=== PATIENT | male | born 1940 | race Caucasian/White ===

== ENCOUNTER 2021-10-23 05:20 | Inpatient (IN) | payer OTHER ==
[2021-10-17 11:51] LABS: BASOPHILS % (AUTO) 0.7 % (0-1); EOSINOPHILS # (AUTO) 0.1 X10'3 (0-0.9); EOSINOPHILS % (AUTO) 1.5 % (0-6); LYMPHOCYTES # (AUTO) 1.5 X10'3 (1.1-4.8); LYMPHOCYTES % (AUTO) 21.5 % (21-51); MEAN CORPUSCULAR HEMOGLOBIN 28.4 PG (27.0-31.0); MEAN CORPUSCULAR HGB CONC 33.6 g/dL (33.0-36.5); MEAN CORPUSCULAR VOLUME 84.5 FL (78-98); MEAN PLATELET VOLUME 7.7 FL (7.4-10.4); MONOCYTES # (AUTO) 0.6 X10'3 (0-0.9); NEUTROPHILS # (AUTO) 4.6 X10'3 (1.8-7.7); NEUTROPHILS % (AUTO) 67.3 % (42-75); PRE OP HEMATOCRIT 39.7 % (42.0-52.0); PRE OP HEMOGLOBIN 13.3 g/dL (14.0-17.9); PRE OP PLATELET COUNT 311 X10'3 (140-440); RED CELL DISTRIBUTION WIDTH 13.9 % (11.5-14.5)
[2021-10-17 12:05] LABS: ALBUMIN 3.8 G/DL (3.4-5.0); ALBUMIN/GLOBULIN RATIO 1.1 (1.1-1.5); ALKALINE PHOSPHATASE 50 IU/L (46-116); BLOOD UREA NITROGEN 28 MG/DL (7-18); BUN/CREATININE RATIO 21.5 (5.4-32.0); CALCIUM 8.7 MG/DL (8.5-10.1); CHLORIDE 107 MMOL/L (99-107); PRE OP ALT 24 U/L (30-65); PRE OP ANION GAP 8 (8-16); PRE OP AST 17 U/L (10-37); PRE OP BILIRUB, TOTAL 0.3 MG/DL (0.0-1.0); PRE OP GLUCOSE 91 MG/DL (70-104); PRE OP POTASSIUM 4.4 MMOL/L (3.4-5.1); PRE OP SODIUM 142 MMOL/L (135-145); TOTAL PROTEIN 7.2 G/DL (6.4-8.2); eGFR 53 ML/MIN
[2021-10-23] VITALS (20 sets, daily range): BP systolic 112–143; BP diastolic 58–87
[~2021-10-23] VITALS: Ht 188 cm; Wt 102.1 kg
[~2021-10-23 05:20] MED LIST: LISI-232 PO; METO50TA7 PO; NORCO10T PO; SIMV10TA2 PO; ringers solution, lacted 1,000 ML IV SCH
[2021-10-23] MEDS ORDERED: famotidine 20mg tablet PO ONE (05:30)
[2021-10-23] MEDS ORDERED: ceFAZolin inj. 2,000 MG in dextrose 5%-water 100 ML IV ONE (05:30)
[2021-10-23] MEDS ORDERED: vancomycin 1,500 MG in NS 300ml IV soln IV ONE (05:30)
[2021-10-23] MEDS ORDERED: DOCUMENT DATE & TIME OF BETA-BLOCKER PO ONE (05:30)
[2021-10-23] MEDS ORDERED: tranexamic acid 650mg tablet PO ONE (05:30)
[2021-10-23] MEDS ORDERED: LIDOcaine 1% (10mg/ml) 2ml vial ONE (05:43)
[2021-10-23] MEDS ORDERED: ketorolac trometh. 30mg/ml inj. ONE (06:53)
[2021-10-23] MEDS ORDERED: ROPIVAcaine 0.5% (5mg/ml) 30ml vial ONE ×2 (06:53→07:12)
[2021-10-23] MEDS ORDERED: dexamethasone sod phosphate 4mg/ml inj. ONE (07:18)
[2021-10-23] MEDS ORDERED: propofol inj 20 ML IV ONE (07:18)
[2021-10-23] MEDS ORDERED: ondansetron/PF 4mg/2ml inj ONE (07:18)
[2021-10-23] MEDS ORDERED: LIDOcaine 1%/PF 5ML 10 MG/ML VIAL ONE (07:18)
[2021-10-23] MEDS ORDERED: morphine 2 MG/ML inj. syringe IV PRN (07:25)
[2021-10-23] MEDS ORDERED: fentaNYL/PF 50MCG/1 ML 2ML syringe IV PRN ×2 (07:25)
[2021-10-23] MEDS ORDERED: ROPIVAcaine 0.2% (10 MG/5 ML) BOLUS INJECTION INTERSCALE PRN (07:25)
[2021-10-23] MEDS ORDERED: labetalol 20mg/4ml (5mg/ml) syringe IV PRN (07:25)
[2021-10-23] MEDS ORDERED: morphine 4 MG/ML inj SYRINge IV PRN (07:25)
[2021-10-23] MEDS ORDERED: hydrALAZINE 20mg/ml inj. IV PRN (07:25)
[2021-10-23] MEDS ORDERED: ondansetron/PF 4mg/2ml inj IV PRN ×2 (07:25→10:10)
[2021-10-23] MEDS ORDERED: ringers solution, lacted 1,000 ML IV SCH (07:25)
[2021-10-23] MEDS ORDERED: sevoflurane 250ml liquid IH ONE (07:52)
[2021-10-23] MEDS ORDERED: fentaNYL/PF 50MCG/1 ML 2ML syringe ONE ×3 (07:56→09:45)
[2021-10-23] MEDS ORDERED: midazolam 1 mg/ML 2ml injection ONE (07:57)
[2021-10-23] MEDS ORDERED: acetaminophen 1,000mg/100ml IV 100 ML IV ONE (08:41)
--- NOTE | 2021-10-23 10:00 | NUR ---
PT ARRIVED TO VIA BED ACCOMPANIED BY DR. CARPENTER, ANESTHESIA REPORT GIVEN. VSS, PT WAKING UP, DENIES PAIN, BLOCK IN PLACE-PT ABLE TO MOVE FINGERS, +PULSE TO LEFT WRIST PRESENT, ARM IN SLING-SHOULDER WRAP AND POWDER PACK PRESENT, DRSG-CDI, SCDS ON, NEURO CHECKS-INTACT.
[2021-10-23] MEDS ORDERED: bisacodyl 10mg suppository rectal RC PRN (10:10)
[2021-10-23] MEDS ORDERED: acetaminophen 325mg tablet PO PRN (10:10)
[2021-10-23] MEDS ORDERED: HYDROmorphone inj. 0.5 MG/0.5 ML DISP.SYRIN IV PRN (10:10)
[2021-10-23] MEDS ORDERED: HYDROcodone/acetaminophen 10/325mg tab PO PRN (10:10)
[2021-10-23] MEDS ORDERED: naloxone 0.4 mg/ml inj IV PRN (10:10)
[2021-10-23] MEDS ORDERED: oxyCODONE IR 5mg (immed. release) tablet PO PRN (10:10)
[2021-10-23] MEDS ORDERED: HYDROmorphone 1 mg/ml syringe IV PRN (10:10)
[2021-10-23] MEDS ORDERED: magnesium hydroxide 30ml (MOM) UD suspension PO PRN (10:10)
[2021-10-23] MEDS ORDERED: diphenhydrAMINE 25mg capsule PO PRN ×2 (10:10)
[2021-10-23] MEDS: ROPIVAcaine 0.2%/PF PUMP/bolus 545 ML INTERSCALE SCH (10:44)
--- NOTE | 2021-10-23 11:30 | NUR ---
PT AWAKE, VSS, PAIN MINIMAL-ON Q ATTACHED AT 2ML/HR-PT EDUCATED REGARDING USE, NO CHANGE IN SHOULDER WRAP AND DRSG-CDI, SLING IN PLACE, SCDS ON, REPORT CALLED TO RN ON ORTHO FLOOR-ALL QUESTIONS ANSWERED, TAKEN WITH ALL BELONGINGS TO ROOM 4009C, PT HELPED UP TO BATHROOM WITH PRIMARY RN-PT ABLE TO VOID, VSS, BED LOW AND LOCKED, CALL LIGHT IN REACH. FAMILY IN ROOM.
[2021-10-23] MEDS: acetaminophen 325mg tablet PO SCH ×2 (14:52→20:41)
[2021-10-23] MEDS: potassium cl 20mEq in 1/2 NS 1,000 ML IV SCH ×2 (16:07→16:36)
[2021-10-23] MEDS: ceFAZolin/D5W- 1GM premix 50 ML IV SCH (16:35)
[2021-10-23] MEDS ORDERED: vancomycin/NS 1 GM ADD-VANTAGE 250 ML IV SCH (20:00)
[2021-10-23] MEDS: oxyCODONE IR 5mg (immed. release) tablet PO PRN (20:41)
[2021-10-23] MEDS: metoprolol succinate 25mg (24-HOUR) SR. Tablet PO SCH (20:42)
[2021-10-23] MEDS ORDERED: sennosides 8.6mg tablet PO SCH (21:00)
[2021-10-23] MEDS ORDERED: atorvastatin 10mg tablet PO SCH (21:00)
[2021-10-24] MEDS: acetaminophen 325mg tablet PO SCH ×2 (01:29→08:11)
[2021-10-24] MEDS: ceFAZolin/D5W- 1GM premix 50 ML IV SCH (01:29)
[2021-10-24 01:59] VITALS: BP 125/62
[2021-10-24] MEDS: potassium cl 20mEq in 1/2 NS 1,000 ML IV SCH ×2 (02:10→10:10)
[2021-10-24] MEDS: oxyCODONE IR 5mg (immed. release) tablet PO PRN ×2 (05:35→10:51)
[2021-10-24 06:00] VITALS: BP 124/55
--- NOTE | 2021-10-24 07:02 | NUR ---
Patient in room ORTHO 4009. I have received report from Alice PARIKH and had the opportunity to ask questions and assume patient care.
[2021-10-24 07:51] LABS: BASOPHILS % (AUTO) 0.3 % (0-1); EOSINOPHILS % (AUTO) 0 % (0-6); HEMATOCRIT 38.1 % (42.0-52.0); HEMOGLOBIN 12.5 g/dl (14.0-17.9); LYMPHOCYTES # (AUTO) 1.1 X10'3 (1.1-4.8); LYMPHOCYTES % (AUTO) 8.4 % (21-51); MEAN CORPUSCULAR HEMOGLOBIN 28.2 PG (27.0-31.0); MEAN CORPUSCULAR HGB CONC 32.9 g/dL (33.0-36.5); MEAN CORPUSCULAR VOLUME 85.7 FL (78-98); MEAN PLATELET VOLUME 8.1 FL (7.4-10.4); MONOCYTES # (AUTO) 1.4 X10'3 (0-0.9); NEUTROPHILS # (AUTO) 10.1 X10'3 (1.8-7.7); NEUTROPHILS % (AUTO) 80.3 % (42-75); PLATELET COUNT 254 X10'3 (140-440); RED BLOOD COUNT 4.45 X10'6 (4.70-6.10); RED CELL DISTRIBUTION WIDTH 14.4 % (11.5-14.5); WHITE BLOOD COUNT 12.6 X10'3 (4.5-11.0)
[2021-10-24] MEDS ORDERED: HYDROchlorothiazide 12.5mg capsule PO SCH (08:00)
[2021-10-24] MEDS: metoprolol succinate 25mg (24-HOUR) SR. Tablet PO SCH (08:00)
[2021-10-24] MEDS ORDERED: lisinopril 20mg tablet PO SCH (08:00)
[2021-10-24 08:04] LABS: ANION GAP 6 (8-16); CHLORIDE 108 MMOL/L (99-107); POTASSIUM 3.9 MMOL/L (3.5-5.1); SODIUM 140 MMOL/L (135-145)
[2021-10-24 08:10] VITALS: BP_SYST 151
[2021-10-24] MEDS ORDERED: aspirin 325mg tablet PO SCH (08:30)
[2021-10-24] MEDS: ROPIVAcaine 0.2%/PF PUMP/bolus 545 ML INTERSCALE SCH (10:53)
--- NOTE | 2021-10-24 16:37 | NUR ---
[employer] documentation: I have reviewed and agree with all interventions, assessments performed and documented by Carolee lawson.
[2021-10-25] MEDS ORDERED: acetaminophen 325mg tablet PO PRN (10:10)
== END 2021-10-24 11:12 | disposition home or self-care (01) | DRG 483 ==
LOC: PAS IN 05:20 → ORTHO 4S 11:33
PROVIDERS: ADMIT Orthopaedic Surgery; ATTEND Orthopaedic Surgery
PROC: 3E0T3BZ Introduction of Anesthetic Agent into Peripheral Nerves and Plexi, Percutaneous Approach (ICD-10-PCS; 2021-10-23)
PROC: 3E0T33Z Introduction of Anti-inflammatory into Peripheral Nerves and Plexi, Percutaneous Approach (ICD-10-PCS; 2021-10-23)
PROC: 0LS40ZZ Reposition Left Upper Arm Tendon, Open Approach (ICD-10-PCS; 2021-10-23)
PROC: 0RRK00Z Replacement of Left Shoulder Joint with Reverse Ball and Socket Synthetic Substitute, Open Approach (ICD-10-PCS; principal; 2021-10-23 07:52)
DX: M19.012 Primary osteoarthritis, left shoulder (principal); I13.0 Hypertensive heart and chronic kidney disease with heart failure and stage 1 through stage 4 chronic kidney disease, or unspecified chronic kidney disease; I50.9 Heart failure, unspecified; N18.9 Chronic kidney disease, unspecified; M75.122 Complete rotator cuff tear or rupture of left shoulder, not specified as traumatic; E78.5 Hyperlipidemia, unspecified; Z79.899 Other long term (current) drug therapy; Z88.8 Allergy status to other drugs, medicaments and biological substances; Z87.891 Personal history of nicotine dependence
CPT/HCPCS: 36415; 80051; 80053; 82948; 85025; 87081; 97116; 97161; 97530; A4618; A6258; A7000; C1776; G0378; J0131; J0690; J1100; J1885; J2250; J2405; J2704; J2795; J3010; J3370; J3480; J3490; J7040; J7060; J7120

== ENCOUNTER 2022-02-07 15:04 | Emergency (ER) | payer OTHER ==
[~2022-02-07] VITALS: Ht 188 cm; Wt 102.7 kg
[~2022-02-07 15:04] MED LIST changes: +SIMV-341 PO; -SIMV10TA2 PO; -ringers solution, lacted 1,000 ML IV SCH
[2022-02-07 15:28] VITALS: BP 149/72
[2022-02-07 18:18] LABS: BASOPHILS # (AUTO) 0.1 X10'3 (0-0.2); BASOPHILS % (AUTO) 0.6 % (0-1); EOSINOPHILS # (AUTO) 0.1 X10'3 (0-0.9); EOSINOPHILS % (AUTO) 1.2 % (0-6); HEMATOCRIT 42.5 % (42.0-52.0); LYMPHOCYTES # (AUTO) 1.6 X10'3 (1.1-4.8); LYMPHOCYTES % (AUTO) 18.1 % (21-51); MEAN CORPUSCULAR HEMOGLOBIN 27.7 PG (27.0-31.0); MEAN CORPUSCULAR HGB CONC 32.8 g/dL (33.0-36.5); MEAN CORPUSCULAR VOLUME 84.4 FL (78-98); MONOCYTES # (AUTO) 0.9 X10'3 (0-0.9); MONOCYTES % (AUTO) 10.1 % (2-12); NEUTROPHILS # (AUTO) 6.4 X10'3 (1.8-7.7); PLATELET COUNT 240 X10'3 (140-440); RED BLOOD COUNT 5.04 X10'6 (4.70-6.10); WHITE BLOOD COUNT 9.1 X10'3 (4.5-11.0)
[2022-02-07 18:33] LABS: APTT 27 SECONDS (22-32)
[2022-02-07 18:35] LABS: ALANINE AMINOTRANSFERASE 31 U/L (12-78); ALBUMIN 3.8 G/DL (3.4-5.0); ALBUMIN/GLOBULIN RATIO 1.1 (1.1-1.5); ALKALINE PHOSPHATASE 62 IU/L (46-116); ANION GAP 8 (8-16); ASPARTATE AMINO TRANSFERASE 22 U/L (10-37); BILIRUBIN,TOTAL 0.4 MG/DL (0.1-1.0); BLOOD UREA NITROGEN 26 MG/DL (7-18); BUN/CREATININE RATIO 20.5 (5.4-32.0); CALCIUM 9.1 MG/DL (8.5-10.1); CHLORIDE 106 MMOL/L (99-107); CREATININE 1.27 MG/DL (0.60-1.10); GLUCOSE 94 MG/DL (70-104); POTASSIUM 4.1 MMOL/L (3.5-5.1); SODIUM 142 MMOL/L (135-145); TOTAL CARBON DIOXIDE 28.4 MMOL/L (24-32); TOTAL PROTEIN 7.3 G/DL (6.4-8.2); eGFR 55 ML/MIN
[2022-02-07] MEDS ORDERED: apixaban 5mg tablet PO ONE (18:45)
[2022-02-07] MEDS ORDERED: APIX5TAB3 PO (18:47)
== END 2022-02-07 19:23 | disposition home or self-care (01) ==
LOC: ER 15:05
DX: I82.812 Embolism and thrombosis of superficial veins of left lower extremity (principal); Z88.1 Allergy status to other antibiotic agents; Z88.8 Allergy status to other drugs, medicaments and biological substances
CPT/HCPCS: 36415; 80053; 85025; 85610; 85730; 93971; 99284

== ENCOUNTER 2024-05-04 06:12 | Day surgery (SDC) | payer OTHER ==
[2024-04-28 14:04] LABS: BASOPHILS # (AUTO) 0.1 X10'3 (0-0.2); BASOPHILS % (AUTO) 0.6 % (0-1); EOSINOPHILS # (AUTO) 0.1 X10'3 (0-0.9); EOSINOPHILS % (AUTO) 0.7 % (0-6); LYMPHOCYTES # (AUTO) 1.3 X10'3 (1.1-4.8); LYMPHOCYTES % (AUTO) 15.5 % (21-51); MEAN CORPUSCULAR HEMOGLOBIN 28.6 PG (27.0-31.0); MEAN CORPUSCULAR HGB CONC 33.1 g/dL (33.0-36.5); MEAN CORPUSCULAR VOLUME 86.5 FL (78-98); MEAN PLATELET VOLUME 7.5 FL (7.4-10.4); MONOCYTES # (AUTO) 0.7 X10'3 (0-0.9); MONOCYTES % (AUTO) 8.6 % (2-12); NEUTROPHILS # (AUTO) 6.2 X10'3 (1.8-7.7); NEUTROPHILS % (AUTO) 74.6 % (42-75); PRE OP HEMATOCRIT 42.7 % (42.0-52.0); PRE OP HEMOGLOBIN 14.1 g/dL (14.0-17.9); PRE OP PLATELET COUNT 288 X10'3 (140-440); PRE OP WHITE BLOOD COUNT 8.4 10'3 (4.8-10.8); RED BLOOD COUNT 4.94 X10'6 (4.70-6.10)
[2024-04-28 14:43] LABS: ALBUMIN 3.8 G/DL (3.4-5.0); ALBUMIN/GLOBULIN RATIO 1.2 (1.1-1.5); ALKALINE PHOSPHATASE 56 IU/L (46-116); BLOOD UREA NITROGEN 23 MG/DL (7-18); BUN/CREATININE RATIO 18.3 (10.0-20.0); CALCIUM 8.5 MG/DL (8.5-10.1); CHLORIDE 106 MMOL/L (99-107); CREATININE 1.26 MG/DL (0.60-1.10); PRE OP ALT 26 U/L (30-65); PRE OP ANION GAP 9 (8-16); PRE OP AST 19 U/L (10-37); PRE OP BILIRUB, TOTAL 0.4 MG/DL (0.0-1.0); PRE OP SODIUM 142 MMOL/L (135-145); TOTAL CARBON DIOXIDE 27.3 MMOL/L (24-32); eGFR 55 ML/MIN
[2024-04-28 14:48] LABS: PRE OP GLUCOSE 82 MG/DL (70-104)
[2024-05-03] MEDS: DOCUMENT DATE & TIME OF BETA-BLOCKER PO ONE (20:00)
[2024-05-04] VITALS (21 sets, daily range): BP systolic 117–143; BP diastolic 59–107; PULSE 55–74; RESP 13–23; TEMP 98.4; O2SAT 94–99
[~2024-05-04] VITALS: Ht 188 cm; Wt 102.8 kg
[2024-05-04] MEDS: ceFAZolin 2gm in dextrose, iso 50 ML IV ONE (05:30)
[~2024-05-04 06:12] MED LIST changes: +ASPI-612 PO; +CHOL100046 PO; +COQ10; +HYDR-3965 PO; +MULT-1085 PO; -NORCO10T PO; +VANCOMYCIN 1,500MG inj. 1,500 MG in normal saline 500ml IV soln 300 ML IV ONE
[2024-05-04] MEDS: famotidine 20mg tablet PO ONE (07:44)
[2024-05-04] MEDS: tranexamic acid 650mg tablet PO ONE (07:45)
[2024-05-04] MEDS: VANCOMYCIN/WATER FOR INJ (PEG) 1.5GM/300 ML IVPB IV ONE (07:45)
[2024-05-04] MEDS: ringers solution, lacted 1,000 ML IV SCH (07:46)
[2024-05-04] MEDS ORDERED: cloNIDine hcl/PF 100mcg/ml inj ONE (08:39)
[2024-05-04] MEDS ORDERED: fentaNYL/PF 50MCG/1 ML 2ML syringe ONE (08:44)
[2024-05-04] MEDS ORDERED: MIDAZolam 1 MG/ML 5ML VIAL ONE (08:44)
[2024-05-04] MEDS ORDERED: propofol inj 20 ML IV ONE (08:46)
[2024-05-04] MEDS ORDERED: ROPIVAcaine 0.5% (5mg/ml) 30ml vial ONE ×3 (08:46→11:30)
[2024-05-04] MEDS ORDERED: morphine 2 MG/ML inj. syringe IV PRN (09:00)
[2024-05-04] MEDS ORDERED: meperidine/PF 25mg/ml syringe IV PRN ×2 (09:00)
[2024-05-04] MEDS ORDERED: ondansetron/PF 4mg/2ml inj IV PRN (09:00)
[2024-05-04] MEDS ORDERED: proCHLORperazine 10 MG/2 ml inj IV PRN (09:00)
[2024-05-04] MEDS ORDERED: ringers solution, lacted 1,000 ML IV SCH (09:00)
[2024-05-04] MEDS ORDERED: sevoflurane 250ml liquid IH ONE (09:31)
[2024-05-04] MEDS: ROPIVAcaine 0.2% (10 MG/5 ML) BOLUS INJECTION INTERSCALE PRN (12:02)
[2024-05-04] MEDS: ROPIVAcaine 0.2%/PF PUMP/bolus 545 ML INTERSCALE SCH (12:02)
[2024-05-04] MEDS: meperidine/PF 25mg/ml syringe IV PRN (12:23)
[2024-05-04] MEDS: acetaminophen 1,000mg/100ml IV 100 ML IV ONE (12:28)
[2024-05-04] MEDS: morphine 4 MG/ML inj SYRINge IV PRN (12:52)
[2024-05-04] MEDS: HYDROcodone/acetaminophen 10/325mg tab PO PRN (14:36)
[2024-05-04] MEDS: ceFAZolin/D5W- 1GM premix 50 ML IV ONE (15:39)
== END 2024-05-04 16:30 | disposition home or self-care (01) ==
LOC: PAS 06:12 → UNDOADMIN 06:23 → PAS IN 06:23 → EDSTATUS 09:15 → UNDODISIN 16:30
PROVIDERS: ATTEND Orthopaedic Surgery
DX: M75.121 Complete rotator cuff tear or rupture of right shoulder, not specified as traumatic (principal); M19.011 Primary osteoarthritis, right shoulder; Z79.899 Other long term (current) drug therapy; I10 Essential (primary) hypertension; G89.18 Other acute postprocedural pain; K21.9 Gastro-esophageal reflux disease without esophagitis; E78.5 Hyperlipidemia, unspecified; E66.9 Obesity, unspecified; M19.012 Primary osteoarthritis, left shoulder; Z98.890 Other specified postprocedural states; Z87.891 Personal history of nicotine dependence
CPT/HCPCS: 23430; 23472; 36415; 64415; 80053; 82948; 85025; 87081; 93005; C1776; J0131; J0690; J0735; J1100; J2175; J2250; J2270; J2405; J2704; J2795; J3010; J3372; J3490; J7030; J7120; Z7506; Z7508; Z7512; A4565; A4618; A7000

== ENCOUNTER 2024-07-16 12:49 | Outpatient (CLI) | payer OTHER ==
[~2024-07-16 12:49] MED LIST changes: -VANCOMYCIN 1,500MG inj. 1,500 MG in normal saline 500ml IV soln 300 ML IV ONE
== END 2024-07-16 23:59 | disposition home or self-care (01) ==
LOC: RAD 12:49
PROVIDERS: ATTEND Physician Assistant
DX: M16.0 Bilateral primary osteoarthritis of hip (principal); M25.551 Pain in right hip
CPT/HCPCS: 73502

== ENCOUNTER 2025-01-10 10:23 | Outpatient (CLI) | payer OTHER ==
--- NOTE | 2025-01-10 12:56 | RADIOLOGY REPORT ---
INDICATION: LUMBAR PAIN COMPARISON: None TECHNIQUE: 3 views of the lumbar spine were obtained. FINDINGS: The lumbar vertebral alignment is normal. Multilevel degenerative changes most pronounced at L4-L5 through L5-S1 causing moderate to severe neural foraminal and spinal canal stenosis. No acute fracture, vertebral compression deformity or aggressive osseous lesions. The paravertebral soft tissues are grossly unremarkable. IMPRESSION: No acute fracture or subluxation.
--- NOTE | 2025-01-10 13:57 | RADIOLOGY REPORT ---
Indication: HISTORY OF SMOKING Technique: CT axial images of the chest are obtained without contrast. Coronal and sagittal reformats were obtained. Radiation Dose Information: CTDI volume is 3.7 mGy. Dose-length product is 163 mGy*cm Comparison: None FINDINGS: Trachea patent. No pneumothorax. Bibasilar atelectasis. Right lower lobe calcified nodule measuring 4 mm. There is a left upper lobe soft tissue nodule measuring 4 mm. Pulmonary emphysematous changes. Heart normal in size. Coronary artery calcification disease. Aortic atherosclerotic disease. Left thyroid nodule measuring 10 mm. No supraclavicular or axillary lymphadenopathy. Small hiatal hernia. Right bilateral shoulder arthroplasty changes. Moderate thoracic degenerative disc disease. IMPRESSION: 4 mm left upper lobe soft tissue nodule, lung rads 3. Recommend follow-up CT in 6 months. Coronary artery calcification disease. 10 mm left thyroid nodule. Recommend thyroid ultrasound for further characterization.
--- NOTE | 2025-01-13 08:35 | RADIOLOGY REPORT ---
INDICATION: pain TECHNIQUE: Multiple real-time sonographic images of the kidneys and bladder were obtained. COMPARISON: None FINDINGS: The right kidney measures 11 cm in length. The right renal echogenicity, contour and cortical thickness are within normal limits. no hydronephrosis or large masses/calculi are seen. The left kidney measures 12 cm in length. The left renal echogenicity, contour, and cortical thickness are within normal limits. no hydronephrosis or large masses/calculi are seen. Bilateral renal cysts measuring 3 cm in the right kidney and 2 cm in the left kidney. No large intraluminal masses are seen in the bladder. Post void residual of 10 cc. There is an anechoic nonspecific lesion seen inferior to the bladder , measuring 4 cm. MRI prostate recommended. IMPRESSION: 1. There is an anechoic nonspecific lesion seen inferior to the bladder , measuring 4 cm. MRI prostate recommended. FIELDS
== END 2025-01-10 23:59 | disposition home or self-care (01) ==
LOC: RAD 10:23
PROVIDERS: ATTEND Physician Assistant
DX: Z12.2 Encounter for screening for malignant neoplasm of respiratory organs (principal); E04.1 Nontoxic single thyroid nodule; N18.31 Chronic kidney disease, stage 3a; N28.89 Other specified disorders of kidney and ureter; M47.817 Spondylosis without myelopathy or radiculopathy, lumbosacral region; M54.50 Low back pain, unspecified; R91.1 Solitary pulmonary nodule; M53.3 Sacrococcygeal disorders, not elsewhere classified; Z96.651 Presence of right artificial knee joint; I25.10 Atherosclerotic heart disease of native coronary artery without angina pectoris; I70.0 Atherosclerosis of aorta; K44.9 Diaphragmatic hernia without obstruction or gangrene; N28.1 Cyst of kidney, acquired; Z87.891 Personal history of nicotine dependence
CPT/HCPCS: 71271; 72110; 76770

== ENCOUNTER 2025-04-01 10:47 | Outpatient (CLI) | payer OTHER ==
--- NOTE | 2025-04-01 11:56 | RADIOLOGY REPORT ---
ULTRASOUND SOFT TISSUE HEAD AND NECK CLINICAL INDICATION: NONTOXIC SINGLE THYROID NODULE TECHNIQUE: Multiple real time sonographic images of the thyroid were obtained. COMPARISON: None FINDINGS: The right lobe measures 4.7 x 1.8 x 1.7 cm The left lobe measures 3.0 x 1.5 x 1.3 cm The isthmus measures 0.4 cm NODULES: RIGHT LOBE NODULES: Nodule location: Right Dimensions: 1.0 x 0.9 x 0.8 cm Composition: Solid or almost completely solid (2) Echogenicity: Hypoechoic (2) Shape: Wider than tall (0) Margin: Smooth (0) Echogenic foci: Punctate echogenic foci (3) TI-RADS Category: TR5 Recommendation: FNA Nodule location: Right Dimensions: 1.1 x 1.2 x 1.1 cm Composition: Solid or almost completely solid (2) Echogenicity: Hypoechoic (2) Shape: Wider than tall (0) Margin: Smooth (0) Echogenic foci: Macrocalcifications (1) TI-RADS Category: TR4 Recommendation: Follow-up LEFT LOBE NODULES: Nodule location: Left Dimensions: 0.5 x 0.3 x 0.4 cm Composition: Solid or almost completely solid (2) Echogenicity: Hypoechoic (2) Shape: Wider than tall (0) Margin: Smooth (0) Echogenic foci: None or large comet tail artifacts (0) TI-RADS Category: TR4 Recommendation: No follow-up IMPRESSION: 1. FNA is recommended for the following: - Right nodule measuring 1.0 x 0.9 x 0.8 cm. 2. Follow-up is recommended for the following with repeat ultrasound imaging in 1 year: - Right nodule measuring 1.1 x 1.2 x 1.1 cm.
== END 2025-04-01 23:59 | disposition home or self-care (01) ==
LOC: RAD 10:47
PROVIDERS: ATTEND Physician Assistant
DX: E04.1 Nontoxic single thyroid nodule (principal)
CPT/HCPCS: 76536